=== PATIENT | female | born 1975 | race Caucasian/White ===

== ENCOUNTER 2020-05-25 18:57 | Emergency (ER) | payer OTHER, SELFPAY ==
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
[2020-05-25 19:15] VITALS: BP 166/84; PULSE 87; RESP 14; TEMP 36.6; O2SAT 97
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
[2020-05-25] MEDS: KETOROLAC 10 MG TABLET PO (21:27)
[2020-05-25 21:35] VITALS: RESP 15; O2SAT 99
== END 2020-05-25 21:36 | disposition home or self-care (01) ==
PROVIDERS: Emergency Provider Emergency Medicine; PCP Internal Medicine
DX: M54.6 Pain in thoracic spine (principal)
CPT/HCPCS: 72128; 96372; 99283; 99284; A9270

== ENCOUNTER 2022-04-06 14:09 | Outpatient (CLI) | payer OTHER, SELFPAY ==
--- NOTE | ~2022-04-06 | US_ITS ---
EXAMINATION:US venous doppler LE LT INDICATION:Left leg swelling TECHNIQUE: Multiple grayscale, color flow and Doppler images of the left lower extremity deep venous systems were obtained and reviewed. COMPARISON:No prior studies for comparison. FINDINGS: The common femoral, superficial femoral and popliteal veins demonstrate normal respiratory variation, augmentation and compressibility. Color flow is also seen within the posterior tibial, pe roneal, greater saphenous and profunda veins. IMPRESSION: 1: No lower extremity deep venous thrombosis. Reviewed, dictated and finalized at [facility].
== END 2022-04-06 14:10 | disposition home or self-care (01) ==
LOC: CHSIMG 14:15
PROVIDERS: PCP Internal Medicine; Visit Provider Nurse Practitioner Family
DX: M79.89 Other specified soft tissue disorders (principal)
CPT/HCPCS: 93971

== ENCOUNTER 2022-11-16 14:20 | Outpatient (CLI) | payer OTHER, SELFPAY ==
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
== END 2022-11-16 14:21 | disposition home or self-care (01) ==
LOC: CHSIMG 14:23
PROVIDERS: PCP Internal Medicine; Visit Provider Nurse Practitioner Family
DX: M25.571 Pain in right ankle and joints of right foot (principal)
CPT/HCPCS: 73610